=== PATIENT | male | born 1995 | race Caucasian/White ===

== ENCOUNTER 2021-09-20 13:31 | Emergency (ER) | payer OTHER ==
[2021-09-20] MEDS ORDERED: CEPHALEXIN500 M1 PO (19:48)
== END 2021-09-20 20:00 | disposition home or self-care (01) ==
LOC: ER1 13:31
DX: S81.011A Laceration without foreign body, right knee, initial encounter (principal); S60.222A Contusion of left hand, initial encounter; S50.811A Abrasion of right forearm, initial encounter; Z23 Encounter for immunization; Z88.0 Allergy status to penicillin; V29.40XA Motorcycle driver injured in collision with unspecified motor vehicles in traffic accident, initial encounter; Y92.410 Unspecified street and highway as the place of occurrence of the external cause
CPT/HCPCS: 12001; 71045; 71260; 73130; 73564; 90471; 90714; 96372; 99284; J0690; Q9967

== ENCOUNTER → 2021-10-06 | Outpatient (CLI) | payer OTHER ==
[~2021-10-06] MED LIST: CEPHALEXIN500 M1 PO
== END ==
LOC: EXRD 10-03 11:30
DX: M79.89 Other specified soft tissue disorders (principal)
CPT/HCPCS: 93971

== ENCOUNTER → 2021-10-26 | Outpatient (CLI) | payer OTHER | END | disposition home or self-care (01) | LOC: WCC 07:44 | PROC: 0JBN0ZZ Excision of Right Lower Leg Subcutaneous Tissue and Fascia, Open Approach (ICD-10-PCS; principal; 2021-10-26) | DX: S81.001A Unspecified open wound, right knee, initial encounter (principal); F84.0 Autistic disorder; E66.01 Morbid (severe) obesity due to excess calories; Z68.42 Body mass index [BMI] 45.0-49.9, adult; Z79.899 Other long term (current) drug therapy; X58.XXXA Exposure to other specified factors, initial encounter ==

== ENCOUNTER → 2021-11-09 | Outpatient (CLI) | payer OTHER | LOC: WCC 07:12 | DX: S81.001A Unspecified open wound, right knee, initial encounter (principal); F84.0 Autistic disorder; E66.01 Morbid (severe) obesity due to excess calories; M79.661 Pain in right lower leg; R60.0 Localized edema; V89.9XXA Person injured in unspecified vehicle accident, initial encounter ==

== ENCOUNTER → 2021-12-07 | Outpatient (CLI) | payer OTHER | END | disposition home or self-care (01) | LOC: WCC 07:39 | DX: S81.001A Unspecified open wound, right knee, initial encounter (principal); R60.0 Localized edema; M79.661 Pain in right lower leg; F84.0 Autistic disorder; E66.01 Morbid (severe) obesity due to excess calories; Z79.899 Other long term (current) drug therapy; Z68.42 Body mass index [BMI] 45.0-49.9, adult; X58.XXXA Exposure to other specified factors, initial encounter ==

== ENCOUNTER → 2021-12-22 | Outpatient (CLI) | payer OTHER | LOC: WCC 07:15 | DX: S81.001D Unspecified open wound, right knee, subsequent encounter (principal); F84.0 Autistic disorder; E66.01 Morbid (severe) obesity due to excess calories; Z68.42 Body mass index [BMI] 45.0-49.9, adult; M79.661 Pain in right lower leg; R60.0 Localized edema | CPT/HCPCS: G0463 ==